=== PATIENT | female | born 1940 ===

== ENCOUNTER 2018-08-05 14:46 | Inpatient (IN) | payer MEDICARE, OTHER ==
[2018-08-05 15:16] LABS: #Basophils 0.1 thou/uL (0.0-0.2); #Eosinphils 0.1 thou/uL (0.0-0.7); #Lymphocytes 1.5 thou/uL (1.20-3.40); #Monocytes 0.5 thou/uL (0.11-0.59); #Neutrophils 8.2 thou/uL (1.40-6.50); %Basophils 0.5 % (0.0-1.0); %Eosinophils 0.9 % (0.0-10.0); %Lymphocytes 14.7 % (21.0-51.0); %Monocytes 5.1 % (0.0-10.0); %Neutrophils 78.7 % (42.0-75.0); Hemoglobin 9.1 g/dL (12.0-16.0); Mean Corpuscular HGB CONC 32.1 g/dL (32.0-36.0); Mean Corpuscular Hemoglobin 29.1 pg (27.0-31.0); Mean Corpuscular Volume 90.6 fL (78.0-98.0); Mean Platelet Volume 7.5 fL (7.4-10.4); Platelet Count 418 thou/uL (130-400); RBC Distribution Width 12.8 % (11.5-14.5); Red Blood Cell (RBC) Count 3.12 mill/uL (4.20-5.40); White Blood Cell (WBC) Count 10.4 thou/uL (4.8-10.8)
[2018-08-05 15:39] LABS: ALT (SGPT) 59 U/L (8-55); AST (SGOT) 25 U/L (5-34); Albumin 3.7 g/dL (3.4-4.8); Alkaline Phosphatase 481 U/L (40-150); Anion Gap 13 mmol/L (10-20); BUN (Urea Nitrogen) 25 mg/dL (9.8-20.1); Bilirubin, Total 0.8 mg/dL (0.2-1.2); Calc. Creatinine Clearance 0 mL/min (70-130); Calcium 9.6 mg/dL (7.8-10.44); Carbon Dioxide 23 mmol/L (23-31); Chloride 95 mmol/L (98-107); Estimated GFR-MDRD 42; Globulin 3.4 g/dL (2.4-3.5); Glucose 324 mg/dL (83-110); Potassium 4.1 mmol/L (3.5-5.1); Protein, Total 7.1 g/dL (6.0-8.3); Sodium 127 mmol/L (136-145)
[2018-08-05 16:00] LABS: CKMB 3.1 ng/mL (0-6.6)
--- NOTE | 2018-08-05 16:01 | CT ---
CT OF HEAD NONCONTRAST: Indication: Stroke. Numbness of left arm and leg. FINDINGS: There is normal size of the ventricular system. There is a punctate hypodensity at the anterior left lentiform nucleus indicative of lacunar infarction. No intracranial hemorrhage, mass effect, or midli ne shift. There is scattered paranasal sinus mucosal thickening. IMPRESSION: 1. No intracranial hemorrhage or mass effect. 2. Lacunar infarction of the left lentiform nucleus. 3. Telephone call placed to the Emergency Department physician at 1514 hours, 08-05-18. POS: [facility]
--- NOTE | 2018-08-05 16:06 | RAD ---
AP CHEST: History: Dizziness. Date: 08-05-18 Comparison: 04-26-11 FINDINGS: AP chest demonstrates osteoarthritic changes seen in the right shoulder. Calcification over the aorta is seen. No evidence of effusions, pneumonia, or pneumothorax is seen. IMPRESSION: Unremarkable AP view chest. POS: [facility]
[2018-08-05 17:44] LABS: Bilirubin Negative (Negative); Blood, Urine Negative (Negative); Clarity CLEAR (Clear); Glucose, Urine (Dipstick) 500 mg/dL (Negative); Leukocyte Small (Negative); Nitrite Negative (Negative); Protein, Urine (Dipstick) Negative (Neg-Trace); Specific Gravity, Urine 1.012 (1.002-1.036); Urobilinogen 0.2 mg/dL (0.2-1.0)
[2018-08-05 17:47] LABS: Bacteria/HPF None Seen HPF (None Seen); Hyaline Casts/LPF 0-3 HYALINE CAST LPF (0-3 Hyaline); RBC/HPF 0-3 HPF (0-3); Squamous Epithelial 0-3 HPF (0-3)
[2018-08-05 19:09] LABS: Troponin I 0.025 ng/mL (< 0.028)
[2018-08-05 22:44] LABS: Troponin I 0.025 ng/mL (< 0.028)
[2018-08-05] MEDS ORDERED: Dextrose 50% Abboject 50 ML SYRINGE IVP PRN (23:33)
[2018-08-05] MEDS ORDERED: Dextrose 5% in Water 1,000 ML IV PRN (23:33)
[2018-08-05] MEDS ORDERED: HumaLOG 300 UNITS/3 ML VIAL SC PRN (23:33)
[2018-08-05] MEDS: Artificial Tear Sol 15 ML BOT EA EYE PRN (23:55)
--- NOTE | 2018-08-06 04:28 | HP ---
PRIMARY CARE PHYSICIAN: Dr. Cele Nunn. CODE STATUS: Full code. TIME OF EVALUATION: 11:45 p.m. CHIEF COMPLAINT: Left arm weakness and left leg weakness. HISTORY OF PRESENT ILLNESS: This is a 78-year-old female patient with past medical history of stroke, also had a history of cancer, stent in the liver, came to the hospital after having left-sided weakness. The symptoms have been present for the past 2 days symptoms have been on and off associated with dizziness, symptoms are reported as mild to moderate. REVIEW OF SYSTEMS: CONSTITUTIONAL: The patient has no fever. No chills. Reported generalized weakness. RESPIRATORY: No cough, sputum production, or shortness of breath. CARDIOVASCULAR: No chest pain or palpitations. GASTROINTESTINAL: No nausea. No vomiting, diarrhea, or abdominal pain. SENIOR TRAINER: The patient has some dizziness. Does have weakness. No headache. GENITOURINARY: No burning on urination. EXTREMITIES: No leg swelling. All other systems were reviewed and negative except for the findings mentioned above. PAST MEDICAL HISTORY: Was mentioned in the HPI. FAMILY HISTORY: Reviewed and noncontributory to current presentation. PAST SURGICAL HISTORY: Liver stent placed in 2018 and also a history of . ALLERGIES: NO KNOWN DRUG ALLERGIES. REPORTED MEDICATIONS: 1. Aspirin. 2. Amlodipine. 3. Glimepiride. 4. Januvia. PHYSICAL EXAMINATION: VITAL SIGNS: On presentation, blood pressure 153/68 with heart rate 78, respiratory rate was 20, temperature 98.4. GENERAL APPEARANCE: The patient is alert, mildly disoriented, not in acute distress. HEENT: Eyes, normal conjunctivae. Moist oral mucosa. Anicteric. No JVD. RESPIRATORY: Bilateral air entry. No rales. No wheezes. Symmetric expansion. CARDIOVASCULAR: Normal rate. Regular rhythm. No murmurs. No gallops. No edema. ABDOMEN: Soft. Normal bowel sounds. MUSCULOSKELETAL: Baseline range of motion and strength. No tenderness. SKIN: Warm and intact. No pallor. No rash. No redness. EXTREMITIES: Peripheral pulses are present. Capillary refill seems to be intact. NEUROLOGIC: The patient has left-sided weakness, 3/5 on the left side and on the left lower extremity, it is decreased. DIAGNOSTIC DATA: EKG was reviewed. The patient has normal sinus rhythm at a rate of 80, no evidence of acute ischemic events. CT head showed lacunar infarction of the left lentiform nucleus. No other acute pathologies. Chest x-ray was negative for any cardiopulmonary process, reading was done by radiologist. LABORATORY DATA: Labs were reviewed. The patient had white count 10.4, hemoglobin 9.1, MCV 90.6, platelet count 418. Chemistry; sodium 127, potassium 4.1, chloride 95, carbon dioxide 23, anion gap 13, BUN 25, creatinine was 1.23. Previous visits, we have no records. GFR 42, glucose 234, repeat one was 301, calcium 9.6, AST 25, ALT 59, alk phos is 481. Troponin initially was 0.037 and the second one x2 were negative. Urine was done and was positive with white count 11 to 20. ASSESSMENT AND PLAN: The patient had been placed in the hospital with the following medical problems: 1. Acute versus subacute lacunar infraction as seem in the CT head. The patient will go for an MRI. We will do a stroke protocol. We will call Neurology for recommendations. Continue aspirin. 2. Urinary tract infection due to positive ua, possibly the patient has generalized weakness, positive urine, is started on Rocephin. We will follow culture and treat accordingly. 3. Uncontrolled diabetes, blood sugar 324. The patient is being started on sliding scale and p.o. medication hold for now. 4. Possible acute kidney injury versus chronic kidney disease. The patient has GFR 42 with creatinine of 1.23. We do not have previous records to compare. We will some hydration. We will monitor. We will treat accordingly. 5. Hyponatremia, sodium is 127, this is moderate. We will monitor sodium level, we will give some NS, we will give some electrolytes trying to evaluate etiology for hyponatremia. 6. Normocytic anemia. The patient has hemoglobin of 9.1, we will monitor and no acute intervention at this point. No evidence of acute bleeding. 7. Deep venous thrombosis prophylaxis. RISK ASSESSMENT: The patient is at high risk complication due to new onset of neurological symptoms. Job ID: [id number] [facility]
[2018-08-06] MEDS: cefTRIAXone\\ROCEPHIN 1 GM in Sodium Chloride 0.9% 100 ML IVPB SCH (05:01)
[2018-08-06] MEDS: Sodium Chloride 0.9% 1,000 ML IV SCH ×2 (05:02→15:14)
[2018-08-06] MEDS: Artificial Tear Sol 15 ML BOT EA EYE PRN ×2 (06:16→21:18)
[2018-08-06 06:57] LABS: Cardiac Risk 3.2 (Less than 4.5)
[2018-08-06 08:19] VITALS: BMI 18.0
--- NOTE | 2018-08-06 08:26 | PDOC.PN ---
- Subjective Encounter Start Date: 08/06/18 Encounter Start Time: 09:30 Ms. Munguia was seen today in follow-up of left sided weakness. She does not have any complaints related to the weakness. She is still weak in both her left upper and lower extremity, but she is more concerned about a recent diagnosis of Pancreatic or Biliary cancer from [facility]. She wants a second opinion, and does not trust the diagnosis. - Objective MAR Reviewed: Yes Vital Signs & Weight: Vital Signs (12 hours) Temp Pulse Resp BP Pulse Ox 08/06/18 07:50 98.2 F 86 16 173/75 H 99 08/06/18 04:00 98.3 F 76 19 162/67 H 97 08/06/18 00:00 98.0 F 75 18 159/74 H 97 Weight Weight 98 lb 9.6 oz Result Diagrams: 08/05/18 14:55 08/05/18 14:55 Additional Labs: Accuchecks 08/06/18 08/05/18 08/05/18 05:57 22:13 20:41 POC Glucose 150 H 301 H 354 H 08/05/18 15:03 POC Glucose 304 H Phys Exam - Physical Examination HEENT: PERRLA Respiratory: no wheezing, no rales, no rhonchi, clear to auscultation bilateral Cardiovascular: RRR, no significant murmur, no rub Gastrointestinal: soft, non-tender, positive bowel sounds Musculoskeletal: no edema, pulses present Neurological: normal sensation + Left upper and lower extremity weakness. She is able to life both the arm and leg, but they are weaker than the right side Dx/Plan (1) Acute CVA (cerebrovascular accident) Code(s): I63.9 - CEREBRAL INFARCTION, UNSPECIFIED Status: Acute (2) Diabetes mellitus type 2 in nonobese Code(s): E11.9 - TYPE 2 DIABETES MELLITUS WITHOUT COMPLICATIONS Status: Chronic (3) UTI (urinary tract infection) Status: Acute - Plan * Acute CVA- MRI results were noted- she had an acute right parietal CVA- continue aspirin * Await echo results, and will also check carotid dopplers * Continue aspirin and will add atorvastatin * Await Neurology evaluation * Continue PT/OT * DM- re-start her home medications, and continue the SSI * ? Biliary Cancer- will request her records from [facility]- but I suspect she can obtain the second opinion as an outpatient
[2018-08-06] MEDS ORDERED: Iopamidol 370 76% 100 ML VIAL ONE (10:08)
[2018-08-06 10:17] LABS: Creatinine, Urine 20.88 mg/dL (47-110); Potassium, Urine 16.5 mmol/L
[2018-08-06] MEDS: Amlodipine 10 MG TAB PO SCH (10:33)
[2018-08-06] MEDS: Aspirin 81 mg Enteric Coated Tablet PO SCH (10:34)
--- NOTE | 2018-08-06 10:53 | MRI ---
BRAIN MRI WITHOUT CONTRAST: Date; 08/06/18 HISTORY: Stroke, left arm and leg numbness, transient ischemic attack. TECHNIQUE: Multiplanar, multisequence MR imaging of the brain is obtained without contrast. FINDINGS: There are numerous subcentimeter foci of restricted diffusion consistent with acute infarction within the deep white matter of the posterior right frontal lobe, as well as within the subcortical white m atter of the posterior right frontal lobe and the posterior aspect of the right parietal lobe. Gradie nt echo imaging demonstrates no associated hemorrhage. There are scattered foci of increased T2 and F LAIR signal in the deep periventricular and subcortical white matter on the right, including in the a reas of above described acute infarction. The right globe is elongated in the AP dimension and demonstrates lobulated abnormal contour, particu larly posteriorly. Arterial flow-voids at the axial level of the skull base appear grossly unremarkable. Regional bone m arrow signal intensity is within normal limits. IMPRESSION: 1. Multiple foci of acute infarction within the right frontal and parietal lobe. 2. No intracranial hemorrhage. 3. Enlarged right globe with irregular peripheral lobulated contour. 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 POS: [facility]
[2018-08-06] MEDS ORDERED: Lorazepam 1 MG TAB PO PRN (12:27)
[2018-08-06] MEDS ORDERED: Lorazepam 0.5 MG TAB PO PRN (12:27)
--- NOTE | 2018-08-06 15:40 | CT ---
NONCONTRAST HEAD CT CT ANGIOGRAM OF THE HEAD CT ANGIOGRAM OF THE NECK: HISTORY: Multifocal acute infarction of the right frontal and parietal lobe. COMPARISON: None. CORRELATION: Brain MRI . FINDINGS: NONCONTRAST HEAD CT: Remote lacunar infarct in the left lentiform nucleus. No parenchymal hemorrhage. No extraaxial manuelito joridn. No midline shift. Basilar cisterns are patent. Age-appropriate atrophy. Cortical nevarez-white matter differentiation is preserved. No evidence of hydrocephalus. Calvarium is intact. Cavernous carotid atherosclerosis is noted. Partial opacification of the left sphenoid sinus and anterior left ethmoid air cells. There is no pathologic enhancement of the brain parenchyma. Visualized ocular lenses are appropriately located. The right ocular lens is an implanted lens. The re is an abnormal appearance of the right globe compatible with either coloboma or posterior staphylo ma. Aerodigestive tract is patent. No mucosal abnormality. No prevertebral soft tissue swelling. Symmetric attenuation of the parotid and submandibular glands. Unremarkable thyroid gland. Sternocl eidomastoid muscles are unremarkable. No evidence of lymphadenopathy by size criteria. Upper mediastinum and lung apices are unremarkable. CT ANGIOGRAM: The aortic arch has appropriate enhancement and luminal diameter. RIGHT CAROTID: The origin of the right carotid artery has appropriate enhancement and luminal diameter. Right commo n carotid artery, carotid bifurcation, and internal carotid artery have mild atherosclerotic disease. There is no significant stenosis based upon NASCET criteria. LEFT CAROTID: Left carotid artery origin has appropriate enhancement and luminal diameter. The left common carotid artery, carotid bifurcation, and internal carotid artery do not have any high-grade stenosis based u chirag NASCET criteria. There is calcified plaque in he left carotid bifurcation and proximal internal carotid artery. Both cervical vertebral bodies are patent throughout their course in the neck. Right vertebral arter y is dominant. Both subclavian arteries are patent. CT ANGIOGRAM OF TH EHEAD: There is long segment moderate to severe narrowing involving both petrous, cavernous, and paraclinoid segments. Both M1 segments are markedly diminutive and irregular. The right A1 segment is not appr eciated and may be occluded or possibly congenitally absent. The left A1 segment is unremarkable. B oth proximal A2 segments are patent. Proximal MCA branches are symmetric. POSTERIOR CIRCULATION: The left vertebral artery is grossly unremarkable. Both PICA artery origins cannot be assessed. The right vertebral artery is a dominant vertebral artery. There is irregularity involving the distal a spect of the basilar artery. No obvious occlusion of the left or right P1 segments. There is mild n arrowing of the proximal right P1 segment. IMPRESSION: 1. Significant atherosclerotic disease involving both intracranial internal carotid arteries with mo derate to severe long-segment stenosis and near-complete occlusion, predominantly in the left paracli noid region. With regard to the anterior circulation, both M1 segments are somewhat irregular and di minutive. Nevertheless, there is no evidence of vascular occlusion of either M1 segment. Proximally , both A2 segments are unremarkable. 2. Posterior circulation does demonstrate mild irregularity with regards to the distal aspect of the basilar artery. Nevertheless, both P1 segments appear to be patent. There is mild narrowing of the proximal right P1 segment. POS: [facility]
[2018-08-06] MEDS ORDERED: Atorvastatin Calcium 10 MG TAB PO SCH (21:00)
[2018-08-06] MEDS: Glimepiride 1 MG TAB PO SCH (21:04)
--- NOTE | 2018-08-07 01:51 | CON ---
DATE OF CONSULTATION: 08/06/2018 CHIEF COMPLAINT: Difficulty with walking. HISTORY OF PRESENT ILLNESS: The patient is a 78-year-old lady who reports she has history of difficulty with walking and she was admitted for low sodium. She was avoiding salt after she was told she had a stroke due to hypertension. She developed left-sided numbness about two days ago along with weakness. They changed her medications for her diabetes recently. She also reports dizziness. She has no difficulties with swallowing. She has been diagnosed recently with liver cancer and a stent was placed. stated that she keeps refusing other treatment choices. She has four tumors in the liver and they were told she had this cancer in May 2018. With a prior stroke, she had whole-body weakness. PREVIOUS MEDICAL HISTORY: The patient has a history of diabetes and hypertension and liver cancer. She also has history of prior CVA. PAST SURGICAL HISTORY: Positive for liver stent placement in May 2018. She does not report any other surgeries other than an . ALLERGIES: NO KNOWN DRUG ALLERGIES. MEDICATIONS: At home, she takes aspirin on a daily basis along with amlodipine, glimepiride, and Januvia. FAMILY HISTORY: She has three brothers, all healthy, but she is not very sure about their medical history. The parents and they both were in the 90s. She is not sure of any history of stroke in the family. Her daughter is 54. Part of the patient's family lives in [facility] and she is not sure of their medical details. SOCIAL HISTORY: She used to smoke 15 years ago. She used to drink coffee and smoked two packs a day for 20 years and she also used to drink heavily and that was 30 years ago. 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 She lives with her . REVIEW OF SYSTEMS: PULMONARY: Negative for shortness of breath. CARDIAC: Negative for palpitations or chest pain. GI: Negative for diarrhea or vomiting. NEUROLOGICAL: Positive for left-sided numbness and difficulty with walking. ENDOCRINE: Positive for diabetes. HEMATOLOGICAL: Negative for any bleeding diatheses. DERMATOLOGIC: Normal PSYCHIATRIC: Negative for depression or anxiety. LABORATORY DATA: Her workup so far, white count 10.4, hemoglobin 9.1, hematocrit 28.3, platelets 418. Chemistry; sodium 127, potassium 4.1, chloride 95, BUN 25, creatinine 1.23, glucose 324, alkaline phosphatase 481, ALT 59, and her cholesterol panel was within normal limits. Triglycerides 104, cholesterol 177, LDL 101, HDL 55, heart disease risk ratio 3.2. Her MRI of the brain showed multiple foci of acute infarction within the right frontal and parietal lobe, enlarged right globe with irregular peripheral lobulated contour. 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 I requested a CT angiography to look at her carotids and cerebral vasculature. The patient had significant atherosclerotic disease involving both intracranial, internal carotid arteries with [id number]-rg-[id number] long segment stenosis and near-complete occlusion, predominantly in the left paraclinoid region. With regard to anterior circulation, both M1 segments are irregular. Posterior circulation does show mild irregularity and there is also narrowing of the proximal right P1 segment. Her carotid Doppler study is pending. Her right carotid artery does not show any stenosis. Left carotid artery also does not show any stenosis, but there is plaque. Her echocardiogram was completed and she has EF 60%-65% and no thrombus was noted. PHYSICAL EXAMINATION: VITAL SIGNS: Blood pressure was 173/75, temperature 99.1, pulse 86. GENERAL APPEARANCE: Well-built, well-nourished, very pleasant lady, very communicative, oriented to time, place, person. CHEST: Clear vesicular breathing. CARDIOVASCULAR: S1, S2 heard. No murmurs. ABDOMEN: Soft. NEUROLOGICAL: Higher intellectual functions normal. Orientation to time, place , and person. Cranial nerves 2 through 12, she has arcus senilis and extraocular movements are normal. Normal sensation of face bilaterally. No facial asymmetry. Tongue midline, no atrophy noted. Normal elevation of palate. Motor; bulk normal, tone normal. Strength 5/5 in upper and lower extremities on the right side. On the left side, her strength in the left upper extremity was 3/5, left lower limb was 4/5. Muscle groups tested, iliopsoas, hamstrings, quadriceps, ankle dorsiflexion, plantar flexion, deltoid, biceps, triceps, wrist extension, flexion, finger extension, flexion bilaterally. Deep tendon reflexes were absent. Please note , in the left foot, her strength was 2/5. Sensory exam was normal. There was no numbness that was described to us. Cerebellar; normal [id number] and [id number], but there was some slowness in the left upper extremity. IMPRESSION: The patient is a 78-year-old lady with multiple risk factors including diabetes, hypertension, and recent liver cancer. She has developed sudden-onset left-sided numbness. Her clinical examination is consistent with left-sided weakness, although no numbness was detected today. She also has low sodium. Her MRI scan shows acute infarct on the right side, in the frontal lobe and parietal lobe and she does have abnormal cerebral vasculature with atherosclerotic vessels intracranially, but no extracranial ICA stenosis was noted. At this time, diagnosis is most consistent with acute cerebrovascular accident. TREATMENT RECOMMENDATIONS: Please continue with aspirin, but also add Plavix. She will need physical therapy and consider placement in acute rehab unit to improve her gait once her sodium is corrected. I will follow up with you as needed. Job ID: [id number] [facility]
[2018-08-07] MEDS: Sodium Chloride 0.9% 1,000 ML IV SCH ×2 (02:00→02:06)
[2018-08-07] MEDS: cefTRIAXone\\ROCEPHIN 1 GM in Sodium Chloride 0.9% 100 ML IVPB SCH (04:24)
[2018-08-07 06:33] LABS: Anion Gap 13 mmol/L (10-20); BUN (Urea Nitrogen) 20 mg/dL (9.8-20.1); Calc. Creatinine Clearance 31 mL/min (70-130); Calcium 8.1 mg/dL (7.8-10.44); Carbon Dioxide 20 mmol/L (23-31); Chloride 103 mmol/L (98-107); Estimated GFR-MDRD 49; Glucose 271 mg/dL (83-110); Potassium 3.9 mmol/L (3.5-5.1); Sodium 132 mmol/L (136-145)
[2018-08-07] MEDS: Glimepiride 1 MG TAB PO SCH (08:57)
[2018-08-07] MEDS: Amlodipine 10 MG TAB PO SCH (08:58)
[2018-08-07] MEDS: Aspirin 81 mg Enteric Coated Tablet PO SCH (08:58)
[2018-08-07] MEDS ORDERED: Alogliptin 25 MG TAB PO SCH (09:00)
[2018-08-07] MEDS ORDERED: Clopidogrel Bisulfate 75 MG TAB PO SCH (09:00)
[2018-08-07 11:02] VITALS: TEMP 97.3
[2018-08-07] MEDS ORDERED: hydrALAZINE 20 MG/ML VIAL SLOW IVP SCH (11:15)
[2018-08-07] MEDS ORDERED: Naproxen 500 MG TAB PO SCH (11:15)
--- NOTE | 2018-08-07 11:28 | EKG ---
Test Reason : CPR Blood Pressure : / mmHG Vent. Rate : 080 BPM Atrial Rate : 080 BPM P-R Int : 178 ms QRS Dur : 098 ms QT Int : 370 ms P-R-T Axes : 059 031 071 degrees QTc Int : 426 ms Normal sinus rhythm Normal ECG Confirmed by ABBE DOMINGO, ALKA ([id number]), industrial editor FARIDEH VYAS ([id number]) on 08/07/2018 11:28:50 AM Referred By: Confirmed By:ALKA MCADAMS MD
[2018-08-07 11:49] VITALS: BP 175/73
[2018-08-07] MEDS: Cepastat Lozenges 1 LOZ PO SCH ×2 (11:52→12:48)
--- NOTE | 2018-08-10 08:56 | DIS ---
DATE OF ADMISSION: 08/05/2018 DATE OF DISCHARGE: 08/07/2018 PRIMARY CARE PHYSICIAN: Dr. Cele Nunn. DISCHARGE DIAGNOSES: 1. Acute infarction within the right frontal and parietal lobe. 2. Hypertension. 3. Questionable recent diagnosis of liver cancer. 4. Diabetes mellitus, type 2, on oral hypoglycemics. 5. Urinary tract infection. DISCHARGE MEDICATIONS: 1. Aspirin 162 mg daily. 2. Plavix 75 mg daily. 3. Amlodipine 10 mg daily. 4. Januvia 100 mg daily. 5. Lipitor 10 mg daily. 6. Levaquin 500 mg p.o. daily for 5 more days. 7. Glimepiride 2 mg p.o. daily. IN-HOUSE CONSULTATION: Neurology, Dr. Jang. PROCEDURES DONE IN THE HOSPITAL: 1. CT scan of the brain upon presentation, which showed findings consistent with lacunar infarction of the left lentiform nucleus without any hemorrhage or mass effect. 2. MRI of the brain, which showed findings consistent with tiny foci of acute infarction within the right frontal and parietal lobe. 3. CT angio of the head and neck, significant atherosclerotic disease in both intracranial and internal carotid arteries with aucbwubc-ew-pihpct long segment stenosis and near complete occlusion predominantly in the left paraclinoid region. There was also some mild irregularity with regard to the distal aspect of the basilar artery. 4. Transthoracic echocardiogram, which shows EF of 60% to 65% with normal wall motion. No thrombus is noticed. HISTORY OF PRESENTING ILLNESS: Ms. Munguia is a 78-year-old female with past medical history of diabetes, hypertension, and history of stroke with questionable recent diagnosis of liver cancer, who presented to the emergency room with complaints of left arm weakness and left leg weakness. A CT scan done in the emergency room was confusing as it showed lacunar infarction in the left lentiform nucleus. She was otherwise hemodynamically stable. EKG and labs were within normal limits. She was admitted for possible CVA with stroke protocol. Neurology and Stroke Team were consulted and she was started on aspirin and Plavix. Her urinary tract infection was concerning for positive UTI. Urine culture was sent and she was started empirically on Rocephin. Please see admission history and physical for further details. HOSPITAL COURSE: The patient underwent thorough workup for the CVA and she did end up having an acute CVA in the right parietal and frontal region. Stroke Team followed the patient along and she was seen by Neurology, who recommended continuation of aspirin with the addition of Plavix. She was also started on statin. Her lipid panel was checked and was within normal limits. Rehab was suggested and recommended for her; however, the patient and her declined at this morning. They were not happy with the quality of the bed and comfort in the hospital, so they decided that they would rather do rehab with home health. This will be arranged prior to her discharge, but as of now, the patient is hemodynamically stable and will be discharged on aspirin, Plavix, and statin, and will follow up with her primary care physician in 1 to 2 weeks. She was seen and examined prior to discharge and all questions were answered. DISCHARGE PLAN: Discharge plan was discussed with the patient and her in detail and they verbalized understanding. Once again, I have discussed the possibility of rehab, but they do not want to stay in the hospital any longer. PHYSICAL EXAMINATION: VITAL SIGNS: This morning, temperature 97.3, pulse of 80, respirations 18, saturating 100% on room air, and blood pressure 175/73. GENERAL: No acute distress. Awake, alert, and oriented x3. She does have some slurred speech and persistent left-sided weakness, otherwise in no acute distress. CHEST: Clear to auscultation bilaterally. HEART: Rate and rhythm regular. She will be discharged once the home health is set up. Blood pressure has been allowed to run a little bit on the hard side for permissive hypertension after the acute stroke. She will continue to take her amlodipine in the outpatient setting. No prescriptions were provided. TIME SPENT: Total time spent in the discharge of this patient, 32 minutes. Job ID: [id number]
== END 2018-08-07 14:05 | disposition home health service (06) | DRG 65 ==
LOC: ERS 14:46 → ERHOLD 17:12 → 2SE 21:57
PROVIDERS: ADMIT Emergency Medicine; ATTEND Emergency Medicine
DX: I63.81 Other cerebral infarction due to occlusion or stenosis of small artery (principal); G81.94 Hemiplegia, unspecified affecting left nondominant side; N39.0 Urinary tract infection, site not specified; C22.8 Malignant neoplasm of liver, primary, unspecified as to type; E87.1 Hypo-osmolality and hyponatremia; I10 Essential (primary) hypertension; E11.9 Type 2 diabetes mellitus without complications; D64.9 Anemia, unspecified; Z79.82 Long term (current) use of aspirin; Z86.73 Personal history of transient ischemic attack (TIA), and cerebral infarction without residual deficits; Z87.891 Personal history of nicotine dependence
CPT/HCPCS: 36415; 36416; 70450; 70496; 70498; 70551; 71045; 80048; 80053; 80061; 81003; 81015; 82553; 82570; 83935; 84133; 84300; 84484; 85025; 87086; 93005; 93306; 96360; J0360; J0696; J7050